=== PATIENT | male | born 1965 | race Caucasian/White ===

== ENCOUNTER → 2018-05-09 | Day surgery (SDC) | payer OTHER ==
[~2018-05-09] VITALS: Ht 185.4 cm; Wt 105.2 kg
[~2018-05-09] MED LIST: AMOX-559 PO; BACI28.415 TP; IBUP600T22 PO; LEV112 PO; LEVO75TA68 PO; LIDOCAINE/SOD BICARB 8.4% SYR ID ONE; NORMOSOL R SOLN(*) 1000 ML BAG 1,000 ML IV PRN; PROPOFOL EMUL(*) 10MG/ML 20 ML 40 ML ONE
[2018-05-09 06:50] VITALS: BP 124/85
[2018-05-09 08:40] VITALS: BP 103/66
[2018-05-09 08:54] VITALS: BP 106/63
[2018-05-09 09:21] VITALS: BP 107/71
[2018-05-09 09:33] VITALS: BP 110/67
[2018-05-09 09:35] VITALS: BP 115/77
== END ==
LOC: OR 00:05
PROVIDERS: ATTEND Family Medicine
DX: Z12.11 Encounter for screening for malignant neoplasm of colon (principal); I10 Essential (primary) hypertension; E03.9 Hypothyroidism, unspecified
CPT/HCPCS: 00812; 45378; J2704